=== PATIENT | male | born 1970 | race Caucasian/White ===

== ENCOUNTER 2018-10-21 16:32 | Emergency (ER) | payer OTHER ==
[~2018-10-21] VITALS: Ht 175.3 cm; Wt 83.9 kg
[~2018-10-21 16:32] MED LIST: Bactrim Ds Tab1 EACH PO; CEPH500 PO; CYCL10 PO; DIAZ2 PO; DIAZ5 PO; DOCU100 PO; HYDACE5 PO; IBUP800 PO; META800 PO; NAPR550 PO; Naprosyn500 MG PO; Norco 5-325 Ta1 EACH PO; OXYACE5T PO; POLY17UD PO; RXMETA800 PO; RXNAPNA550 PO; SULTRIDS PO; TRAACE PO
[2018-10-21] MEDS ORDERED: Norco 5-325 Ta1 EACH PO (18:12)
[2018-10-21] MEDS ORDERED: CEPH500 PO (18:12)
== END 2018-10-21 18:28 | disposition home or self-care (01) ==
LOC: ER 16:32
DX: S61.215A Laceration without foreign body of left ring finger without damage to nail, initial encounter (principal); F17.200 Nicotine dependence, unspecified, uncomplicated; W26.0XXA Contact with knife, initial encounter
CPT/HCPCS: 12001; 73140; 99282-25

== ENCOUNTER 2018-11-22 19:28 | Emergency (ER) | payer OTHER ==
[~2018-11-22] VITALS: Ht 175.3 cm; Wt 83.9 kg
[2018-11-22 20:20] LABS: BASOPHILS ABSOLUTE AUTO 0.05 K/mm3 (0.00-0.23); BASOPHILS PERCENT AUTO 1 % (0-2); EOSINOPHILS ABSOLUTE AUTO 0.41 K/mm3 (0.00-0.68); EOSINOPHILS PERCENT AUTO 5 % (0-6); Hematocrit 43.1 % (37.0-53.0); Hemoglobin 14.5 g/dL (13.5-17.5); IMMATURE GRAN ABSOLUTE AUTO 0.04 K/mm3 (0.00-0.10); IMMATURE GRAN PERCENT AUTO 0 % (0-1); LYMPHOCYTES ABSOLUTE AUTO 2.37 K/mm3 (0.84-5.20); LYMPHOCYTES PERCENT AUTO 27 % (21-46); MONOCYTES ABSOLUTE AUTO 0.63 K/mm3 (0.16-1.47); MONOCYTES PERCENT AUTO 7 % (4-13); Mean Corpuscular HGB 29.9 pg (26.0-34.0); Mean Corpuscular HGB Conc 33.6 g/dL (31.5-36.5); Mean Corpuscular Volume 89 fL (80-100); Mean Platelet Volume 9.4 fL (9.1-12.4); NEUTROPHILS ABSOLUTE AUTO 5.42 K/mm3 (1.96-9.15); NEUTROPHILS PERCENT AUTO 61 % (41-73); Platelet Count 245 K/mm3 (150-400); RDW Coefficient Variation 11.9 % (11.7-14.2); RDW Standard Deviation 38.9 fL (35.1-46.3); Red Blood Cell Count 4.85 M/mm3 (4.30-5.90); White Blood Cell Count 8.92 K/mm3 (4.00-11.30)
[2018-11-22 20:34] LABS: Alanine Aminotransfer (ALT/SGP 31 U/L (12-78); Albumin, Blood 3.7 g/dL (3.4-5.0); Albumin/Globulin Ratio 1.1 (0.8-1.8); Alk Phos 120 U/L (50-136); Anion Gap 7 mmol/L (6-16); Aspartate Aminotrans (AST/SGOT 21 U/L (12-37); Bilirubin, Total 0.3 mg/dL (0.1-1.0); Blood Urea Nitrogen 13 mg/dL (8-24); Bun/Creatinine Ratio 12.7 (12.0-20.0); CO2, Blood 27 mmol/L (21-32); Calcium, Blood 8.4 mg/dL (8.5-10.1); Chloride, Blood 108 mmol/L (98-108); Creatinine, Blood 1.02 mg/dL (0.60-1.20); Globulin, Blood 3.5 g/dL (2.2-4.0); Glomerular Filtration Rate >60 (60-); Glucose, Blood 110 mg/dL (70-99); Potassium, Blood 3.6 mmol/L (3.5-5.5); Sodium, Blood 142 mmol/L (136-145); Total Protein, Blood 7.2 g/dL (6.4-8.2); Troponin I <0.015 ng/mL (0.000-0.040)
[2018-11-22] MEDS ORDERED: Omeprazole20 M1 PO (22:11)
== END 2018-11-22 22:22 | disposition home or self-care (01) ==
LOC: ER 19:28
PROVIDERS: Emergency Medicine
DX: R07.89 Other chest pain (principal); F17.200 Nicotine dependence, unspecified, uncomplicated
CPT/HCPCS: 36415; 71046; 80053; 84484; 85025; 93005; 93010; 99285-25

== ENCOUNTER 2019-03-21 20:52 | Emergency (ER) | payer OTHER ==
[~2019-03-21] VITALS: Ht 172.7 cm; Wt 81.7 kg
[~2019-03-21 20:52] MED LIST changes: +Omeprazole20 M1 PO
[2019-03-21 21:10] LABS: BASOPHILS ABSOLUTE AUTO 0.07 K/mm3 (0.00-0.23); BASOPHILS PERCENT AUTO 1 % (0-2); EOSINOPHILS ABSOLUTE AUTO 0.34 K/mm3 (0.00-0.68); EOSINOPHILS PERCENT AUTO 2 % (0-6); Hematocrit 45.8 % (37.0-53.0); IMMATURE GRAN ABSOLUTE AUTO 0.89 K/mm3 (0.00-0.10); IMMATURE GRAN PERCENT AUTO 6 % (0-1); LYMPHOCYTES ABSOLUTE AUTO 5.64 K/mm3 (0.84-5.20); LYMPHOCYTES PERCENT AUTO 41 % (21-46); MONOCYTES ABSOLUTE AUTO 1.03 K/mm3 (0.16-1.47); MONOCYTES PERCENT AUTO 7 % (4-13); Mean Corpuscular HGB 30.2 pg (26.0-34.0); Mean Corpuscular HGB Conc 30.6 g/dL (31.5-36.5); Mean Corpuscular Volume 99 fL (80-100); Mean Platelet Volume 9.8 fL (9.1-12.4); NEUTROPHILS ABSOLUTE AUTO 5.95 K/mm3 (1.96-9.15); NEUTROPHILS PERCENT AUTO 43 % (41-73); NRBC ABSOLUTE 0.03 K/mm3 (0.00-0.02); NRBC Auto 0.2 /100 WBC (0.0-0.2); Platelet Count 267 K/mm3 (150-400); RDW Coefficient Variation 12.2 % (11.7-14.2); RDW Standard Deviation 44.4 fL (35.1-46.3); Red Blood Cell Count 4.63 M/mm3 (4.30-5.90); White Blood Cell Count 13.92 K/mm3 (4.00-11.30)
[2019-03-21 21:32] LABS: BAND PERCENT MAN 4 % (0-8); BASOPHILS PERCENT MAN 0 % (0-2); EOSINOPHILS ABSOLUTE MAN 0.27 K/mm3 (0.00-0.68); EOSINOPHILS PERCENT MAN 2 % (0-6); LYMPHOCYTES ABSOLUTE MAN 4.73 K/mm3 (0.84-5.20); LYMPHOCYTES PERCENT MAN 34 % (21-46); METAMYELOCYTE ABSOLUTE MAN 0.55 K/mm3 (0.00-0.00); METAMYELOCYTE PERCENT MAN 4 % (0-0); MONOCYTES ABSOLUTE MAN 0.69 K/mm3 (0.16-1.47); MONOCYTES PERCENT MAN 5 % (4-13); MYELOCYTE ABSOLUTE MAN 0.13 K/mm3 (0.00-0.00); MYELOCYTE PERCENT MAN 1 % (0-0); NEUTROPHILS ABSOLUTE MAN 7.51 K/mm3 (1.96-9.15); SEG NEUTROPHILS PERCENT MAN 50 % (41-73); TOTAL CELLS COUNTED 100
[2019-03-21 21:34] LABS: International Normalized Ratio 1.01; Prothrombin Time Results 10.7 Sec (9.7-11.5)
[2019-03-21 21:47] LABS: Acetaminophen, Random <2.0 ug/mL (10.0-30.0); Alanine Aminotransfer (ALT/SGP 75 U/L (12-78); Albumin, Blood 3.3 g/dL (3.4-5.0); Albumin/Globulin Ratio 1.2 (0.8-1.8); Alk Phos 131 U/L (50-136); Anion Gap 16 mmol/L (6-16); Aspartate Aminotrans (AST/SGOT 84 U/L (12-37); Bilirubin, Total 0.2 mg/dL (0.1-1.0); Blood Urea Nitrogen 13 mg/dL (8-24); Bun/Creatinine Ratio 9.4 (12.0-20.0); CO2, Blood 20 mmol/L (21-32); Calcium, Blood 8.2 mg/dL (8.5-10.1); Chloride, Blood 104 mmol/L (98-108); Creatinine, Blood 1.38 mg/dL (0.60-1.20); Ethanol (Alcohol), Blood, Med <3 mg/dL; Globulin, Blood 2.8 g/dL (2.2-4.0); Glomerular Filtration Rate 58 (60-); Glucose, Blood 313 mg/dL (70-99); Sodium, Blood 140 mmol/L (136-145); Total Protein, Blood 6.1 g/dL (6.4-8.2)
[2019-03-21 22:03] LABS: U Amphetamine Screen Not Detected; U Barbituate Screen Not Detected; U Benzodiazapine Screen Not Detected; U Buprenorphine Screen Not Detected; U Cannabinoids Screen Not Detected; U Cocaine Screen Not Detected; U Methadone Screen Not Detected; U Methamphetamine Screen Not Detected; U Opiates Screen Not Detected; U Oxycodone Screen Not Detected; U Phencyclidine Screen Not Detected; U Propoxyphene Screen Not Detected
== END 2019-03-21 21:30 | disposition short-term general hospital (02) ==
LOC: ER 20:52
PROVIDERS: Emergency Medicine
DX: T14.91XA Suicide attempt, initial encounter (principal); I46.9 Cardiac arrest, cause unspecified; X83.8XXA Intentional self-harm by other specified means, initial encounter; Z79.899 Other long term (current) drug therapy; F17.200 Nicotine dependence, unspecified, uncomplicated
CPT/HCPCS: 31500; 31720; 36415; 51702; 70496; 70498; 71045; 71275; 80053; 85025; 85610; 85730; 93005; 93010; 94002; G0480; J2704; J7050; L0160; Q9967